=== PATIENT | female | born 1980 | race Caucasian/White ===

== ENCOUNTER 2016-12-08 20:59 | Emergency (ER) | payer SELFPAY ==
[~2016-12-08] VITALS: Ht 165.1 cm; Wt 86.4 kg
[~2016-12-08 20:59] MED LIST: AMOXICILLIN500 M1 PO; BENTYL20 MG PO; CLEOCIN300 MG PO; ENDOCET 5-3251 EACH PO; HYDROCODON-ACE1 EAC7 PO; IMITREX25 MG PO; INDOCIN25 MG PO; LEXAPRO10 MG PO; MOTRIN600 MG PO; MOTRIN800 MG PO; NORCO 5/3251 TABLET PO; PEN-VEE K,VEET250 MG PO; PREDNISONE10 MG PO; REGLAN5 MG PO; TRAMADOL HCL50 MG PO; VICODIN,LORT1 TABLET PO; ZOLOFT100 MG PO
[2016-12-08 21:44] LABS: HEMATOCRIT 41.7 % (36.0-46.0); MCH 30.1 PG (29.0-34.0); MCHC 33.8 G/DL (30.0-36.0); MCV 89.1 FL (83-99); MEAN PLAT.VOLUME 9.2 uM^3 (9.5-12.4); PLATELET COUNT 285 K/uL (156-360); RBC DIS.WIDTH-SD 38.9 % (39-53); RED BLOOD COUNT 4.68 M/uL (3.80-5.20); WHITE BLOOD COUNT 8.4 K/uL (4.1-10.2)
[2016-12-08 22:02] LABS: CHLORIDE 107 mEq/L (99-109); POTASSIUM 3.7 mEq/L (3.7-5.4); SODIUM 139 mEq/L (136-147)
[2016-12-08 22:04] LABS: GLUCOSE 98 mg/dL (70-99)
[2016-12-08 22:06] LABS: ADD MIUA? YES; BILIRUBIN NEGATIVE; BLOOD NEGATIVE; COLOR YELLOW ((YELLOW)); GLUCOSE (STRIP) NEGATIVE; KETONES NEGATIVE; LEUKOCYTES NEGATIVE; NITRITE NEGATIVE; PROTEIN (STRIP) 30; SPECIFIC GRAVITY 1.023 (1.000-1.030); UROBILINOGEN 0.2 MG/DL (0.2-1.0)
[2016-12-08 22:06] LABS: ANION GAP 9 MEQ/L (2-14); TOTAL BILIRUBIN 0.3 mg/dL (0.0-1.0)
[2016-12-08 22:08] LABS: ALKALINE PHOSPHATASE 106 IU/L (3-129); GFR ESTIMATE (CALCULATED) > 59 mL/min/
[2016-12-08 22:09] LABS: UREA NITROGEN (BUN) 10 mg/dL (9-23)
[2016-12-08 22:14] LABS: BACTERIA RARE /HPF; EPITHELIAL CELLS 1+ /HPF; MUCUS 1+ /LPF; UCUL ADDED? NO; WHITE BLOOD CELLS 0-5 /HPF (0-5)
[2016-12-08 22:17] LABS: QUANTITATIVE HCG < 4.0 MIU/ML
[2016-12-09 00:23] VITALS: BP 122/74
== END 2016-12-09 00:24 | disposition home or self-care (01) ==
LOC: EME 20:59
DX: R10.30 Lower abdominal pain, unspecified (principal)
CPT/HCPCS: 74177; 80053; 81003; 84702; 85027; 99281; 99285; J1885; J2405; J3010; J7030